=== PATIENT | female | born 1945 | race African-American/Black ===

== ENCOUNTER 2020-03-06 18:09 | Emergency (ER) | payer MEDICARE ==
[~2020-03-06] VITALS: Ht 170.2 cm; Wt 99.5 kg
[2020-03-06 19:25] VITALS: BP 232/103
[2020-03-06] MEDS ORDERED: diphenhydrAMINE HCL 25 MG CAPSULE PO ONE (20:15)
[2020-03-06] MEDS ORDERED: predniSONE 10 MG TABLET PO ONE (20:15)
[2020-03-06] MEDS ORDERED: FAMOTIDINE 20 MG TABLET. PO ONE (20:15)
[2020-03-06] MEDS ORDERED: PRED50TA PO (20:27)
[2020-03-06] MEDS ORDERED: FAMO20TA5 PO (20:27)
--- NOTE | 2020-03-06 20:27 | PHYS DOC ---
Past Medical History Past Medical History: Hypertension (LUCIAN HECK APRN) Past Surgical History: No Surgical History (LUCIAN HECK APRN) Smoking Status: Never Smoker Alcohol Use: None (LUCIAN HECK APRN) General Adult EDM: Chief Complaint: EYE PROBLEMS HPI: HPI: Patient is a 74 year old female who presents with wasp sting to the right upper eyelid that occurred a couple minutes ago. Patient denies any difficulty hakeem thing throat or tongue swelling. Denies any vision loss. (LUCIAN HECK APRN) Review of Systems: Review of Systems: Constitutional: Denies fever or chills. [] Eyes: Wasp sting to the right upper eyelid. denies change in visual acuity. [] HENT: Denies nasal congestion or sore throat. [] Respiratory: Denies cough or shortness of breath. [] Cardiovascular: Denies chest pain or edema. [] GI: Denies abdominal pain, nausea, vomiting, bloody stools or diarrhea. [] : Denies dysuria. [] Musculoskeletal: Denies back pain or joint pain. [] Integument: Denies rash. [] Neurologic: Denies headache, focal weakness or sensory changes. [] Psychiatric: Denies depression or anxiety. [] (LUCIAN HECK APRN) Heart Score: Risk Factors: Risk Factors: DM, Current or recent (<one month) smoker, HTN, HLP, family history of CAD, obesity. Risk Scores: Score 0 - 3: 2.5% MACE over next 6 weeks - Discharge Home Score 4 - 6: 20.3% MACE over next 6 weeks - Admit for Clinical Observation Score 7 - 10: 72.7% MACE over next 6 weeks - Early Invasive Strategies (LUCIAN HECK APRN) Current Medications: Current Medications Medications (Trade) Dose Ordered Sig/Javier Start Time Stop Time Status Last Admin Dose Admin Diphenhydramine HCl (Benadryl) 25 mg 1X ONCE 03/06/20 20:15 03/06/20 20:16 UNV Famotidine (Pepcid) 20 mg 1X ONCE 03/06/20 20:15 03/06/20 20:16 UNV Prednisone (Prednisone) 50 mg 1X ONCE 03/06/20 20:15 03/06/20 20:16 UNV (LUCIAN HECK APRN) Physical Exam: PE: Constitutional: Well developed, well nourished, no acute distress, non-toxic appearance. [] HENT: Normocephalic, atraumatic, bilateral external ears normal, oropharynx [address], no oral exudates, nose normal. [] Eyes: PERRLA, EOMI, conjunctiva normal, no discharge. Slight swelling noted on the medial canthus of the right upper eyelid. Neck: Normal range of motion, no tenderness, supple, no stridor. [] Cardiovascular:Heart rate regular rhythm, no murmur [] Lungs & Thorax: Bilateral breath sounds clear to auscultation [] Abdomen: Bowel sounds normal, soft, no tenderness, no masses, no pulsatile masses. [] Skin: Warm, dry, no erythema, no rash. [] Back: No tenderness, no CVA tenderness. [] Extremities: No tenderness, no cyanosis, no clubbing, ROM intact, no edema. [] Neurologic: Alert and oriented X 3, normal motor function, normal sensory function, no focal deficits noted. [] Psychologic: Affect normal, judgement normal, mood normal. [] (LUCIAN HECK APRN) Current Patient Data: Vital Signs: Vital Signs Date Time Temp Pulse Resp B/P (MAP) Pulse Ox O2 Delivery O2 Flow Rate FiO2 03/06/20 19:25 97.6 80 13 232/103 (146) 100 Room Air 97.6 (LUCIAN HECK APRN) EKG: EKG: [] (LUCIAN HECK APRN) Radiology/Procedures: Radiology/Procedures: [] (LUCIAN HECK APRN) Course & Med Decision Making: Course & Med Decision Making Pertinent Labs and Imaging studies reviewed. (See chart for details) This is a 74-year-old female patient presenting to the ED today with a wasp sting to the right upper eyelid. No anaphylactic reaction symptoms. Started on prednisone Benadryl and Pepcid, discharged to home with the same. Provided return precautions. (LUCIAN HECK APRN) Dragon Disclaimer: Dragon Disclaimer: This electronic medical record was generated, in whole or in part, using a voice recognition dictation system. (LUCIAN HECK APRN) Departure Departure Impression: Primary Impression: Wasp sting Qualified Codes: T63.461A - Toxic effect of venom of wasps, accidental (unintentional), initial encounter Disposition: HOME, SELF-CARE Condition: STABLE Referrals: MARTÍNEZ SOW MD (PCP) follow up next week Patient Instructions: Bee, Wasp, or Hornet Sting Additional Instructions: Please take the prescribed medications as ordered. Please return to the ED at any point symptoms worsen. Follow-up with your doctor next week. Scripts Famotidine (FAMOTIDINE) 20 Mg Tablet 20 MG PO DAILY, #7 TAB Prov: LUCIAN HECK APRN 03/06/20 Prednisone (PREDNISONE) 50 Mg Tablet 1 TAB PO DAILY, #5 TAB Prov: LUCIAN HECK APRN 03/06/20 Justicifation of Admission Dx: Justifications for Admission: Justification of Admission Dx: N/A (LUCIAN HECK APRN) Attending Signature Attending Signature I have reviewed the PA/ASPHALT WORKER's note and plan of care. I was available for consultation as needed during the patient's visit in the emergency department. I agree with the clinical impression, plan, and disposition. (MAURICIO KILPATRICK DO) LUCIAN HECK APRN Mar 06, 2020 20:27 MAURICIO KILPATRICK DO Mar 06, 2020 23:29
== END 2020-03-06 20:35 | disposition home or self-care (01) ==
LOC: ER 18:09
DX: T63.461A Toxic effect of venom of wasps, accidental (unintentional), initial encounter (principal); R60.0 Localized edema; I10 Essential (primary) hypertension; Y92.89 Other specified places as the place of occurrence of the external cause
CPT/HCPCS: 99284; J7512; Q0163